=== PATIENT | male | born 1960 | race Caucasian/White ===

== ENCOUNTER 2017-04-12 02:57 | Emergency (ER) | payer MEDICAID, OTHER ==
[~2017-04-12] VITALS: Ht 175.3 cm; Wt 90.9 kg
[~2017-04-12 02:57] MED LIST: CARB200T92 PO; CIPR500T4 PO; ESOM20CA PO; MELO-37 PO; MONT4TAB8 PO; PHEN-537 PO
[2017-04-12 03:21] VITALS: Ht 175.3 cm; Wt 90.9 kg
[2017-04-12] MEDS ORDERED: ACETAMINOPHEN 500 MG TAB PO STA (06:17)
[2017-04-12] MEDS ORDERED: ACETAMINOPHEN 325 MG TAB PO STA (06:52)
[2017-04-12] MEDS ORDERED: METOCLOPRAMIDE 10 MG INJ IV STA (06:52)
--- NOTE | 2017-04-12 06:59 | RADRPT ---
PROCEDURE: CHEST - 1 VIEW CLINICAL INDICATION: 56-year-old male with chest pain, headaches and fever. TECHNIQUE: A single frontal AP portable view of the chest was performed. The images were reviewed on a PACS workstation. COMPARISON: None. FINDINGS: The cardiomediastinal silhouette has a normal appearance. There is no evidence for an infiltrate. There is no evidence for congestive heart failure. There is no evidence for pneumothorax. The osseou s structures are intact. IMPRESSION: No evidence for active cardiopulmonary disease. .Alec Espinoza MD, MD Date Time Electronically viewed and signed by .Alec Espinoza MD, on 04/12/2017 06:59 .M/
--- NOTE | 2017-04-12 07:06 | ERD ---
ER Documentation Chief Complaint Date/Time DATE: 04/12/17 TIME: 07:04 Chief Complaint c/o headache +fever since +n/v HPI Patient is a 56-year-old male who presents to the ER with 3 days of fever to 102 , headache, myalgias, and vomiting. He reports that he just returned from a three-week trip to [place]. His sister who is on the trip with him was recently diagnosed with West Nile virus. He denies cough, dysuria, abdominal pain, diarrhea. ROS All systems reviewed and are negative except as per history of present illness. Medications Home Meds Active Scripts Phenazopyridine Hcl* (Pyridium*) 100 Mg Tab, 100 MG PO TID Y for DYSURIA, #8 TAB Prov:LEFTY RIOS 08/09/15 Ciprofloxacin Hcl* (Ciprofloxacin Hcl*) 500 Mg Tablet, 500 MG PO BID for 10 Days , TAB Prov:LEFTY RIOS 08/09/15 Reported Medications Meloxicam (Mobic) 15 Mg Tablet, 15 MG PO Q6 02/21/11 Montelukast Sodium* (Singulair*) 4 Mg Tab.chew, 4 MG PO DAILY 02/21/11 Esomeprazole Mag Trihydrate (Nexium) 20 Mg Capsule.dr, 20 MG PO DAILY 02/21/11 Carbamazepine (Tegretol) 200 Mg Tablet, 200 MG PO BID 02/21/11 Allergies Allergies: Coded Allergies: codeine (Verified Allergy, Mild, RASH, ITCHING, 08/09/15) PMhx/Soc Past medical history: Epilepsy Past surgical history: Appendectomy, lumbar laminectomy, knee surgery Social history: Denies tobacco or alcohol History of Surgery: Yes (appendix, back(disks)) Anesthesia Reaction: No Hx Neurological Disorder: Yes (SEIZURE DIS) Hx Respiratory Disorders: No Hx Cardiac Disorders: No Hx Psychiatric Problems: No Hx Miscellaneous Medical Probl: Yes (SEASONAL ALLERGIES) Hx Alcohol Use: No Hx Substance Use: No Hx Tobacco Use: No Smoking Status: Never smoker FmHx Family History: No coronary disease, No diabetes Physical Exam Vitals Vital Signs Date Time Temp Pulse Resp B/P Pulse Ox O2 Delivery O2 Flow Rate FiO2 04/12/17 12:14 98.3 62 20 116/69 98 Room Air 04/12/17 11:55 98.3 60 20 122/63 100 Room Air 04/12/17 03:21 99.1 65 20 132/77 97 Physical Exam Const: Alert, no acute distress Head: Atraumatic Eyes: Normal Conjunctiva, No pallor, no icterus, no photophobia ENT: Normal External Ears, Nose and Mouth.Mucous membranes moist Neck: Full range of motion.Equivocal meningismus Resp: Clear to auscultation bilaterally, No wheezes, no rales Cardio: Regular rate and rhythm, no murmurs Abd: Soft, non tender, non distended. Skin: No petechiae or rashes Back: No midline or flank tenderness Ext: No cyanosis, or edema Neur: Awake and alert, Cranial nerves II through XII intact bilaterally, strength and sensation full in 4 extremity Psych: Normal Mood and Affect Result Diagram: 04/12/17 0710 04/12/17 0710 Results 24 hrs Laboratory Tests Test 04/12/17 07:10 04/12/17 10:30 White Blood Count 3.310^3/ul Red Blood Count 4.3910^6/ul Hemoglobin 13.9g/dl Hematocrit 41.5% Mean Corpuscular Volume 94.5fl Mean Corpuscular Hemoglobin 31.7pg Mean Corpuscular Hemoglobin Concent 33.5g/dl Red Cell Distribution Width 12.3% Platelet Count 35150^3/UL Mean Platelet Volume 10.1fl Neutrophils % 65.5% Lymphocytes % 18.5% Monocytes % 14.5% Eosinophils % 0.9% Basophils % 0.3% Nucleated Red Blood Cells % 0.0/100WBC Neutrophils # (Manual) 2.110^3/ul Lymphocytes # 0.610^3/ul Monocytes # 0.510^3/ul Eosinophils # 0.010^3/ul Basophils # 0.010^3/ul Nucleated Red Blood Cells # 0.010^3/ul Prothrombin Time 13.0Sec Prothrombin Time Ratio 1.0 INR International Normalized Ratio 0.98 Activated Partial Thromboplast Time 36.6Sec Urine Color YELLOW Urine Clarity CLEAR Urine pH 5.0 Urine Specific [place] 1.018 Urine Ketones NEGATIVEmg/dL Urine Nitrite NEGATIVEmg/dL Urine Bilirubin NEGATIVEmg/dL Urine Urobilinogen NEGATIVEmg/dL Urine Leukocyte Esterase NEGATIVELeu/ul Urine Microscopic RBC 0/HPF Urine Microscopic WBC 1/HPF Urine Mucus FEW/HPF Urine Hemoglobin 1+mg/dL Urine Glucose NEGATIVEmg/dL Urine Total Protein 1+mg/dl Sodium Level 139mmol/L Potassium Level 4.3mmol/L Chloride Level 106mmol/L Carbon Dioxide Level 23mmol/L Anion Gap 14 Blood Urea Nitrogen 13mg/dl Creatinine 0.90mg/dl Glucose Level 88mg/dl Calcium Level 8.1mg/dl CSF Tubes Submitted 4 CSF Volume 4.0ml CSF Appearance CLEAR CSF Color COLORLESS CSF WBC 1/cmm CSF RBC 0/uL CSF Cell Count Tube # TUBE#3 CSF Mononuclear Cells % (Auto) 0.0% CSF Polynuclear WBCs (%) 100.0% CSF Glucose 52mg/dl CSF Total Protein 18mg/dl Current Medications Medications (Trade) Dose Ordered Sig/Rossi Route PRN Reason Start Time Stop Time Status Last Admin Dose Admin Acetaminophen (Tylenol Tab) 1,000 mg ONCE STAT PO 04/12/17 06:17 04/12/17 06:19 DC 04/12/17 06:34 Acetaminophen (Tylenol Tab) 650 mg ONCE STAT PO 04/12/17 06:52 04/12/17 07:02 DC Metoclopramide HCl (Reglan) 10 mg ONCE STAT IV 04/12/17 06:52 04/12/17 07:02 DC 04/12/17 07:17 Procedures/MDM Lumbar Puncture by me: Patient consented, time out performed, sterilely prepped/draped, anesthetized locally. Anesthesia: 1% lidocaine locally Location: One interspace below the iliac crest Technique: 20 gauge needle with stylet for entry and removal of needle Results: Clear CSF fluid No post procedure complications, bleeding, numbness or weakness. Patient is a 56-year-old male recently to return from a trip to [place] who presents with subjective fevers at home, myalgias and headache. He was afebrile in the ER, had no leukocytosis or signs of sepsis, had negative UA and chest x-ray, and had LP that was negative for meningitis. The patient was concerned that he may have West Nile virus due to his sister being diagnosed recently. A West Nile titer was sent, and the patient was advised to follow-up on the results early next week. He appeared well clinically, and I believe is stable for discharge. I advised him to drink plenty of fluids, take analgesics and antipyretics as needed, and to return to the ER for any new or worsening symptoms. Departure Diagnosis: Primary Impression: Influenza-like illness Condition: KEVIN Sharp MD Apr 12, 2017 07:06
--- NOTE | 2017-04-12 07:58 | RADRPT ---
PROCEDURE: CT head without intravenous contrast CLINICAL INDICATION: Headache and fever. COMPARISON: None relevant listed. TECHNIQUE: Axial CT images from skull base to vertex with coronal and sagittal reformats. DOSE: The estimated administered radiation dose was CTDI vol = 42 mGy. DLP = 720 mGy-cm. One or mor e of the following dose reduction techniques were used: automated exposure control, adjustment of th e mA and/or kV according to patient size, or use of iterative reconstruction. FINDINGS: Parenchyma: No acute hemorrhage, large territorial infarction, or mass. Mild amount of periventricul ar and subcortical white matter hypodensity, a nonspecific finding often associated with chronic munir roangiopathy. Ventricles: No ventriculomegaly or ventricular effacement. Extra-axial spaces: No herniation or midline shift. Paranasal sinuses: Mild paranasal sinus mucosal thickening. Mastoids and middle ears: Clear. Vessels: Mild calcified atherosclerotic arterial plaque. Bones: Normal. Extracranial soft tissues: Normal. Additional comment: None. IMPRESSION: No acute intracranial abnormality. RPTAT: PP Physician Aurelia Date Time Electronically viewed and signed by Physician Aurelia on 04/12/2017 07:58 /
[2017-04-12 07:59] LABS: ABNORMAL IP MESSAGE 1; BASOPHILS % 0.3 % (0.0-2.0); LYMPHOCYTES # 0.6 10^3/ul (0.8-2.9); MONOCYTE # 0.5 10^3/ul (0.3-0.9); PLATELET COUNT 139 10^3/UL (140-415); POSITIVE DIFF @See below; RED CELL DISTRIBUTION WIDTH 12.3 % (11.5-14.5); WHITE BLOOD COUNT 3.3 10^3/ul (4.8-10.8)
[2017-04-12 08:02] LABS: ADD UMIC YES; UR ASCORBIC ACID NEGATIVE (NEGATIVE); UR BILIRUBIN (Dip) NEGATIVE (NEGATIVE); UR BLOOD (Dip) 1+ mg/dL (NEGATIVE); UR CLARITY CLEAR (CLEAR); UR COLOR YELLOW (YELLOW); UR GLUCOSE (Dip) NEGATIVE (NEGATIVE); UR KETONES (Dip) NEGATIVE (NEGATIVE); UR LEUKOCYTE ESTERASE (Dip) NEGATIVE Leu/ul (NEGATIVE); UR MUCUS FEW /HPF (NONE SEEN); UR NITRITE (Dip) NEGATIVE (NEGATIVE); UR RBC 0 /HPF (0-5); UR SPECIFIC GRAVITY (Dip) 1.018 (1.003-1.030); UR TOTAL PROTEIN (Dip) 1+ mg/dl (NEGATIVE); UR UROBILINOGEN (Dip) NEGATIVE (NEGATIVE)
[2017-04-12 08:23] LABS: INR 0.98
[2017-04-12 08:24] LABS: PARTIAL THROMBOPLASTIN TIME 36.6 Sec (25.0-35.0)
[2017-04-12 08:35] LABS: CALCIUM 8.1 mg/dl (8.4-10.2); CREATININE 0.9 mg/dl (0.61-1.24); POTASSIUM 4.3 mmol/L (3.5-5.1); RED BLOOD COUNT 4.39 10^6/ul (4.70-6.10)
[2017-04-12 08:40] LABS: EOSINOPHILS % 0.9 % (0.0-7.0); HEMATOCRIT 41.5 % (42.0-52.0); HEMOGLOBIN 13.9 g/dl (14.0-18.0); LYMPHOCYTES % 18.5 % (15.0-51.0); MEAN CORPUSCULAR HEMOGLOBIN 31.7 pg (29.0-33.0); MEAN CORPUSCULAR HGB CONC 33.5 g/dl (32.0-37.0); MEAN CORPUSCULAR VOLUME 94.5 fl (82.0-101.0); MEAN PLATELET VOLUME 10.1 fl (7.4-10.4); MONOCYTES % 14.5 % (0.0-11.0); NEUTROPHILS % 65.5 % (39.0-77.0)
[2017-04-12 11:01] LABS: CSF COLOR COLORLESS; CSF#TUBE COUNT TUBE#3; CSF#TUBES REC'D 4
[2017-04-12 11:14] LABS: GLUCOSE,CSF 52 mg/dl (50-80)
[2017-04-12 12:14] VITALS: BP 116/69; PULSE 62; RESP 20; TEMP 98.3
== END 2017-04-12 12:15 | disposition home or self-care (01) ==
LOC: FTE 02:57
DX: J11.1 Influenza due to unidentified influenza virus with other respiratory manifestations (principal); R07.9 Chest pain, unspecified
CPT/HCPCS: 36415; 70450; 71010; 80048; 81001; 82945; 84157; 85025; 85610; 85730; 86788; 86789; 87400; 89051; 96374; J2765; Z7502; Z7610